=== PATIENT | female | born 1995 | race Hispanic/Latino ===

== ENCOUNTER 2017-11-14 19:21 | Emergency (ER) | payer SELFPAY ==
[2017-11-14 19:26] VITALS: TEMP 97.8
[2017-11-14 20:23] LABS: BASO # 0.1 K/uL (0.0-0.2); BASO % 0.6 % (0.0-2.0); EOS # 0.1 K/uL (0.0-0.7); HEMATOCRIT 43.3 % (34.0-47.0); LYMPH # 2.6 K/uL (1.0-4.3); LYMPH % 28.1 % (20.0-40.0); MEAN CORPUSCULAR HEMOGLOBIN 26.3 pg (27.0-31.0); MEAN CORPUSCULAR HGB CONC 32.4 g/dL (33.0-37.0); MEAN PLATELET VOLUME 8.4 fl (7.2-11.7); MONO # 0.6 K/uL (0.0-0.8); MONO % 6.5 % (0.0-10.0); NEUT # 5.8 K/uL (1.8-7.0); NEUT % 63.8 % (50.0-75.0); NRBC % 0.1 % (0.0-0.0); RED CELL DISTRIBUTION WIDTH 13.5 % (11.5-14.5); WHITE BLOOD COUNT 9.1 K/uL (4.8-10.8)
[2017-11-14 20:33] LABS: ALB/GLOB RATIO 1.5 (1.0-2.1); ALCOHOL SERUM 292 mg/dl (0-10); ALKALINE PHOSPHATASE 80 U/L (38-126); ALT/SGPT 32 U/L (9-52); AST/SGOT 31 U/L (14-36); BILIRUBIN,TOTAL 0.3 mg/dl (0.2-1.3); BLOOD UREA NITROGEN 10 mg/dl (7-17); CALCIUM 9.2 mg/dL (8.4-10.2); CARBON DIOXIDE 26 mmol/L (22-30); CHLORIDE 109 mmol/L (98-107); GFR AFRICAN-AMERICAN > 60; GLUCOSE,RANDOM 62 mg/dL (65-105); SODIUM 150 mmol/l (132-148); TOTAL PROTEIN 8.1 G/DL (6.3-8.2)
--- NOTE | 2017-11-14 20:40 | ED PDOC ---
HPI: Psych/Substance Abuse Time Seen by Provider: 11/14/17 19:36 Chief Complaint (Nursing): Alcohol Ingestion Chief Complaint (Provider): Alcohol Intoxication ED Caveat: Intoxicated History Per: Patient History/Exam Limitations: intoxication Current Symptoms Are (Timing): Still Present Additional History Per: EMS Additional Complaint(s): Raghav is a 22 y/o female with a history of bipolar disorder who was brought into the ED by EMS for intoxication. Patient was attending the [facility]. She has no complaints. PMD: None Provided Past Medical History Reviewed: Historical Data, Nursing Documentation, Vital Signs Vital Signs: Last Vital Signs Temp 97.8 F 11/14/17 19:23 Pulse 111 H 11/14/17 19:23 Resp 16 11/14/17 19:23 BP 147/81 11/14/17 19:23 Pulse Ox 100 11/14/17 19:23 - Medical History PMH: Bipolar Disorder - Family History Family History: States: Unknown Family Hx - Allergies Allergies/Adverse Reactions: Allergies Allergy/AdvReac Type Severity Reaction Status Date / Time No Known Allergies Allergy Verified 11/14/17 19:26 Review of Systems Review Of Systems: ROS cannot be obtained secondary to pt's inabilty to answer questions. Physical Exam - Reviewed Nursing Documentation Reviewed: Yes Vital Signs Reviewed: Yes - Physical Exam Appears: Positive for: No Acute Distress Skin: Positive for: Normal Color, Warm, Dry Eye Exam: Positive for: Normal appearance ENT: Positive for: Normal ENT Inspection Neck: Positive for: Normal, Painless ROM, Supple Cardiovascular/Chest: Positive for: Regular Rate, Rhythm. Negative for: Murmur Respiratory: Positive for: Normal Breath Sounds. Negative for: Respiratory Distress Neurologic/Psych: Positive for: Motor/Sensory Deficits (slurred speech, unsteady gate) - Laboratory Results Result Diagrams: 11/14/17 20:16 11/14/17 20:16 - ECG O2 Sat by Pulse Oximetry: 100 (RA) Pulse Ox Interpretation: Normal Medical Decision Making Medical Decision Making: Time: 19:42 Initial Impression: 22 y/o intoxicated female Initial Plan: --Alcohol Serum --CMP --Urine Drug Screen --Accucheck Time: 20:05 --Ativan Time: 0337 Patient awake, alert and oriented x 3 with steady gait. Stable for discharge home. Scribe Attestation: Documented by Werner Rm, acting as a scribe for Kev Bennett MD Provider Scribe Attestation: All medical record entries made by the Scribe were at my direction and personally dictated by me. I have reviewed the chart and agree that the record accurately reflects my personal performance of the history, physical exam, medical decision making, and the department course for this patient. I have also personally directed, reviewed, and agree with the discharge instructions and disposition. Disposition - Clinical Impression Clinical Impression: Alcohol abuse with intoxication - Disposition Disposition: Routine/Home Disposition Time: 03:38 Condition: STABLE Instructions: Alcohol Intoxication (ED) Forms: [employer] ([place]ian)
[2017-11-15 01:42] VITALS: RESP 18
[2017-11-15 03:38] VITALS: O2SAT 100
[2017-11-15 07:17] VITALS: BP 107/54; PULSE 84
== END 2017-11-15 06:47 | disposition home or self-care (01) ==
LOC: H.ER 19:21
DX: F10.129 Alcohol abuse with intoxication, unspecified (principal); F31.9 Bipolar disorder, unspecified
CPT/HCPCS: 80053; 81025; 82948; 85025; 99282; G0480